=== PATIENT | female | born 1955 | race Caucasian/White ===

== ENCOUNTER 2020-04-26 10:53 | Emergency (ER) | payer MEDICARE ==
[~2020-04-26] VITALS: Ht 162.6 cm; Wt 82.7 kg
[2020-04-26 11:12] VITALS: BP 196/110
== END 2020-04-26 11:25 | disposition home or self-care (01) ==
LOC: ER 10:54
DX: S00.83XA Contusion of other part of head, initial encounter (principal); Z88.0 Allergy status to penicillin; Z88.2 Allergy status to sulfonamides; Z88.5 Allergy status to narcotic agent; Z88.8 Allergy status to other drugs, medicaments and biological substances; W19.XXXA Unspecified fall, initial encounter; Y93.89 Activity, other specified; Y92.89 Other specified places as the place of occurrence of the external cause; Y99.8 Other external cause status
CPT/HCPCS: 99281

== ENCOUNTER 2024-11-12 08:37 | Outpatient (CLI) | payer MEDICARE | END 2024-11-12 23:59 | disposition home or self-care (01) | LOC: MRI02 08:37 | PROVIDERS: ATTEND Orthopaedic Surgery | DX: S46.812A Strain of other muscles, fascia and tendons at shoulder and upper arm level, left arm, initial encounter (principal); M19.012 Primary osteoarthritis, left shoulder; M24.112 Other articular cartilage disorders, left shoulder; M25.512 Pain in left shoulder; M66.812 Spontaneous rupture of other tendons, left shoulder; W19.XXXA Unspecified fall, initial encounter; Y93.89 Activity, other specified; Y92.89 Other specified places as the place of occurrence of the external cause; Y99.8 Other external cause status; M75.122 Complete rotator cuff tear or rupture of left shoulder, not specified as traumatic; M89.312 Hypertrophy of bone, left shoulder | CPT/HCPCS: 73221 ==